=== PATIENT | male | born 1965 | race Two or more races ===

== ENCOUNTER 2024-12-28 09:49 | Day surgery (SDC) | payer OTHER ==
[2024-12-19 09:55] LABS: HEMATOCRIT 45.3 % (39.0-48.0); HEMOGLOBIN 15.8 g/dL (13-16.00); MEAN CELL VOLUME 83.2 fL (80.0-100.00); MEAN CORPUSCULAR HEMOGLOBIN 29.1 pg (27.00-32.0); PLATELET COUNT 193 K/uL (150-450); RED BLOOD COUNT 5.45 M/uL (4.00-6.00); RED CELL DISTRIBUTION WIDTH 13.8 % (11.5-14.5)
[2024-12-19 10:12] LABS: URINE APPEARANCE Clear; URINE BILIRRUBIN Negative (NEGATIVE); URINE BLOOD Negative; URINE COLOR Yellow; URINE GLUCOSE Negative (NEGATIVE); URINE KETONE Negative (NEGATIVE); URINE LEUKOCYTE Trace; URINE NITRATE Negative; URINE PROTEIN Negative (NEGATIVE); URINE UROBILINOGEN 0.2 E.U./dl
[2024-12-19 10:16] LABS: URINE BACTERIA 150.5 uL (0.0-1933); URINE EPITHELIAL CELLS 7.4 uL (0.0-38.8); URINE RBC 5.1 uL (0.0-20.8); URINE WBC 17.4 uL (0.0-23.2)
[2024-12-19 10:17] LABS: INR 0.96; PROTHROMBIN TIME 10.5 SECONDS (9.0-11.5)
[2024-12-19 10:20] VITALS: BP 123/84
[2024-12-19 10:20] LABS: CALCIUM 9.8 mg/dL (8.5-10.1); CREATININE SERUM 1.18 mg/dL (0.70-1.30); GFR 63.18; POTASSIUM 4.53 mEq/L (3.5-5.1)
[2024-12-19 10:23] LABS: URINE CAST 0.29 uL (0.0-1.40)
[~2024-12-28] VITALS: Ht 177.8 cm; Wt 113.4 kg
[~2024-12-28 09:49] MED LIST: COZAAR100 MG PO; HYDRODIURIL12.5 MG PO; TOPROL XL50 M1 PO
[2024-12-28] MEDS ORDERED: CIPROFLOXACIN IN 5 % DEXTROSE 400 MG/200 ML PIGGYBAG IV ONE (11:06)
[2024-12-28] MEDS ORDERED: LIDOCAINE HCL 1%/EPINEPHRINE 20ML VIAL IJ ONE (12:27)
[2024-12-28] MEDS ORDERED: BUPIVACAINE HCL/MPF 0.5% 30ML VIAL ONE (12:29)
[2024-12-28] MEDS ORDERED: TRAMADOL HCL50 MG PO (12:57)
[2024-12-28] MEDS ORDERED: TYLENOL ARTHRI650 MG PO (12:57)
== END 2024-12-28 15:30 | disposition home or self-care (01) ==
LOC: EDBD → CIR.AMB 09:49
PROVIDERS: ATTEND Surgery
DX: D21.6 Benign neoplasm of connective and other soft tissue of trunk, unspecified (principal); D49.2 Neoplasm of unspecified behavior of bone, soft tissue, and skin; Z88.6 Allergy status to analgesic agent; Z88.0 Allergy status to penicillin; Z91.013 Allergy to seafood

== ENCOUNTER 2025-03-08 10:13 | Day surgery (SDC) | payer OTHER ==
[2025-02-28 08:33] LABS: BASO % 1.3 % (0.1-1.2); EOS # 0.53 (0.04-0.54); EOS % 7.6 % (0.7-7.0); LYMPH # 1.95 (1.18-3.74); LYMPH % 28.0 % (19.3-53.1); MEAN PLATELET VOLUME 10.40 fl (9.4-12.4); MONO # 0.78 (0.24-0.82); MONO % 11.2 % (4.7-12.5); NEUT # 3.58 (1.56-6.13); NEUT % 51.5 % (34.0-71.1); RED CELL DISTRIBUTION WIDTH 13.7 % (11.6-14.4)
[2025-02-28 08:34] LABS: URINE APPEARANCE Clear; URINE BILIRRUBIN Negative (NEGATIVE); URINE BLOOD Negative; URINE COLOR Yellow; URINE GLUCOSE Negative (NEGATIVE); URINE KETONE Negative (NEGATIVE); URINE LEUKOCYTE Negative; URINE NITRATE Negative; URINE PROTEIN Negative (NEGATIVE); URINE UROBILINOGEN 0.2 E.U./dl
[2025-02-28 08:39] LABS: URINE BACTERIA 48.9 uL (0.0-1933); URINE RBC 4.1 uL (0.0-20.8)
[2025-02-28 08:47] VITALS: BP 117/80
[2025-02-28 08:56] LABS: INR 0.94
[2025-02-28 09:12] LABS: URINE CAST 0.44 uL (0.0-1.40); URINE EPITHELIAL CELLS 0.9 uL (0.0-38.8); URINE WBC 1.2 uL (0.0-23.2)
[2025-02-28 09:31] LABS: BUN CREA RATIO 15.0 (7.0-25.0); CREATININE SERUM 1.13 mg/dL (0.70-1.30); GFR 66.42; GLUCOSE FASTING 103.0 mg/dL (65-100); OSMOLALITY SERUM 287.0 MOSM/KG (275-295)
[~2025-03-08] VITALS: Ht 177.8 cm; Wt 108.9 kg
[~2025-03-08 10:13] MED LIST changes: +TRAMADOL HCL50 MG PO; +TYLENOL ARTHRI650 MG PO
[2025-03-08] MEDS ORDERED: BUPIVACAINE HCL 30 ML VIAL IJ ONE (12:15)
[2025-03-08] MEDS ORDERED: CIPROFLOXACIN IN 5 % DEXTROSE 400 MG/200 ML PIGGYBAG IV ONE (12:15)
[2025-03-08] MEDS ORDERED: SUGAMMADEX SODIUM 200 MG/2 ML VIAL IV ONE (12:30)
[2025-03-08] MEDS ORDERED: LEVOFLOXACIN500 MG PO (13:19)
[2025-03-08] MEDS ORDERED: TRAMADOL HCL50 MG PO (13:19)
[2025-03-08] MEDS ORDERED: TYLENOL ARTHRI650 MG PO (13:19)
[2025-03-08] MEDS ORDERED: MIRALAX17 GM PO (13:19)
[2025-03-08] MEDS ORDERED: MORPHINE SULFATE 4 MG/ML VIAL IV ONE (13:55)
== END 2025-03-08 16:00 | disposition home or self-care (01) ==
LOC: CIR.AMB 10:13
PROVIDERS: ATTEND Surgery
DX: D21.6 Benign neoplasm of connective and other soft tissue of trunk, unspecified (principal); L90.5 Scar conditions and fibrosis of skin; Z88.6 Allergy status to analgesic agent; Z88.0 Allergy status to penicillin; Z91.013 Allergy to seafood